=== PATIENT | male | born 1990 | race Hispanic/Latino ===

== ENCOUNTER 2021-11-15 16:04 | Emergency (ER) | payer SELFPAY ==
[2021-11-15 16:27] VITALS: BP 145/84; PULSE 73; RESP 16; TEMP 36.7; O2SAT 100
--- NOTE | 2021-11-15 16:49 | ED_ITS ---
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 Pt denies fever. Related Data Allergies Allergy/AdvReac Type Severity Reaction Status Date / Time No Known Allergies Allergy Verified 11/15/21 16:54 Exam Const: General: no acute distress Orientation/consciousness: patient oriented x3 Neck: Neck: no lymphadenopathy Chest: Chest palpation & inspection: normal inspection of the chest Resp: Effort & Inspection: normal respiratory effort Cardio: Rate: regular rate Rhythm: regular rhythm GI: GI Palp: Yes Soft to palpation Skin: Other: smal mobile lipomas to right and left flank and left forearm, no erythema or fluctuance Extrem: General: normal to inspection and no clubbing, cyanosis or edema Psych: Appearance: grossly normal Mental Status: mental status grossly normal Thought content: Yes Normal thought content present Course Vital Signs Vital signs: Vital Signs Temperature 98.1 F 11/15/21 16:27 Pulse Rate 73 11/15/21 16:27 Respiratory Rate 16 11/15/21 16:27 Blood Pressure 145/84 H 11/15/21 16:27 Pulse Oximetry 100 11/15/21 16:27 Temperature 98.1 F 11/15/21 16:27 Pulse Rate 73 11/15/21 16:27 Respiratory Rate 16 11/15/21 16:27 Blood Pressure 145/84 H 11/15/21 16:27 Pulse Oximetry 100 11/15/21 16:27 Discharge Plan Discharge Clinical Impression: Lipoma of chest wall Lipoma of arm Qualifiers: Laterality: left Qualified Code(s): D17.22 - Benign lipomatous neoplasm of skin and subcutaneous tissue of left arm Patient Disposition: Home, Self-Care Condition: Stable Instructions: Antibiotic Form, Lipoma (ED) Patient Language: [place]raini Prescriptions: New cephalexin 500 mg capsule 500 mg PO Q6H Qty: 28 RF: 0 ibuprofen 800 mg tablet 800 mg PO TID Qty: 30 RF: 0 Follow-up/Referrals: PHYSICIAN,TREE KILLER [Primary Care Provider] -
== END 2021-11-15 17:36 | disposition home or self-care (01) ==
PROVIDERS: Emergency Provider Emergency Medicine
DX: D17.22 Benign lipomatous neoplasm of skin and subcutaneous tissue of left arm (principal); D17.1 Benign lipomatous neoplasm of skin and subcutaneous tissue of trunk
CPT/HCPCS: 99283